=== PATIENT | female | born 1955 | race Asian ===

== ENCOUNTER → 2016-05-12 | Outpatient (CLI) | payer BC ==
--- NOTE | 2016-05-12 09:51 | RADRPT ---
PROCEDURE: XR bilateral knees. CLINICAL INDICATION: Knee pain TECHNIQUE: AP weightbearing, PA weightbearing, lateral weightbearing and sunrise views of each kne e are available for review. COMPARISON: None available FINDINGS: Right knee: There is moderate to severe osteoarthrosis involving the right patellofemoral compartment and modera te osteoarthrosis involving the medial tibial femoral compartment and the lateral tibial femoral com partment .This is associated with joint space narrowing, subchondral sclerosis and osteophytosis. Left knee: There is mild to moderate osteoarthrosis involving the left medial tibial femoral compartment, later al tibial femoral compartment and patellofemoral compartment. This is associated with joint space na rrowing, subchondral sclerosis and osteophytosis. There is otherwise normal mineralization, architecture and alignment. No fractures are identified. No osseous lesions are identified. The soft tissues are unremarkable. IMPRESSION: Moderate to severe osteoarthrosis involving the right patellofemoral compartment and moderate osteoa rthrosis involving the medial tibial femoral compartment and the lateral tibial femoral compartment. Mild to moderate osteoarthrosis involving the left medial tibial femoral compartment, lateral tibial femoral compartment and patellofemoral compartment. RPTAT: HGDB .Julien Tejeda MD, MD Date Time Electronically viewed and signed by .Julien Tejeda MD, on 05/12/2016 09:51 .B/
== END | disposition home or self-care (01) ==
LOC: HKI 10:01
PROVIDERS: ATTEND Orthopaedic Surgery
DX: M17.0 Bilateral primary osteoarthritis of knee (principal); M25.561 Pain in right knee; M25.562 Pain in left knee; I10 Essential (primary) hypertension; Z79.82 Long term (current) use of aspirin
CPT/HCPCS: 73564; G0463

== ENCOUNTER 2016-06-15 10:00 | Inpatient (IN) | payer BC ==
[~2016-06-15] VITALS: Ht 162.6 cm; Wt 77.0 kg
--- NOTE | 2016-06-30 05:39 | PREOPHP ---
DATE OF ADMISSION: 06/15/2016 DATE OF SURGERY: 06/15/2016 Thank you very much for allowing me to evaluate this 60-year-old female who is to undergo right knee surgery. HISTORICAL EVENTS: As you well know, this patient has had progressive disabling pain involving her right knee and elected to proceed with surgical intervention. Today, she denies cough, wheezing, sh ortness of breath, nausea, vomiting, abdominal or chest pain at rest. She denies exertional chest p ain, radiating neck, arm or jaw discomfort. She denies urinary urgency, leaking, dysuria, flank fareed n, fever, chills or blood in her urine. She has longstanding constipation without symptoms of gastr ointestinal bleeding. Has some "mild dyspepsia." This is relieved when she takes either Protonix o r Zantac regularly. PAST MEDICAL HISTORY: 1. Cholecystectomy. 2. Left ankle surgery, right foot bunion surgery, history of plantar fasciitis and heel spurs. 3. History of prediabetes. 4. Acid reflux. 5. Constipation that is longstanding. Gains no help with fiber. Had colonoscopy at age 58 that wa s unrevealing. 6. Labile white coat hypertension. ALLERGIES: NONE. MEDICATIONS: 1. Simvastatin 20 per day. 2. Meloxicam 7.5 (not taking). 3. Ranitidine 150 mg at night. 4. Metformin 500 b.i.d. 5. Vitamin D3 2000 units per day. 6. Losartan 50 mg b.i.d. FAMILY HISTORY: Remarkable for heart disease and diabetes. She has 1 daughter and 2 sons that are healthy. SOCIAL HISTORY: She does not smoke, does not drink alcohol. 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 PHYSICAL EXAMINATION: GENERAL: Overweight female in no acute distress. VITAL SIGNS: BP 168/97, respirations were 18. She was afebrile. EYES: Extraocular muscles were full. NOSE, MOUTH, AND THROAT: Normal. NECK: Supple. There was no jugular venous distention, thyroid enlargement or adenopathy. Carotids 2+, no bruits. LUNGS: Clear. HEART: Rhythm regular. BREASTS: Not examined. ABDOMEN: Nontender. Liver and spleen were not palpable. No masses or tenderness were noted. EXTREMITIES: No edema. Calves nontender. Pulses 2+. IMPRESSION: I forsee no problems with the planned surgical intervention, pending lab review. I have asked her to take her losartan 100 mg at bedtime prior to a.m. surgery. I will follow her postoper atively with you. Dictated By: STEPHANIE SIMS/PABLO Conf#: [id number] DID#: [id number] CC: RAD BARNHART MD;*EndCC*
[2016-07-29] VITALS (14 sets, daily range): BP systolic 113–154; BP diastolic 78–91; PULSE 78–100; RESP 17–19; Ht 162.6 cm; Wt 77.0 kg
[2016-07-29] MEDS ORDERED: EPHEDrine SULFATE 50 MG/5 ML SYG ONE (07:00)
[2016-07-29] MEDS: traMADol 50 MG TAB PO SCH ×2 (12:00→18:00)
[2016-07-29] MEDS ORDERED: EXPAREL NOTE (BUPIVICAINE LIPOSOMAL) XX SCH (12:30)
[2016-07-29] MEDS: LACTATED RINGER'S 1,000 ML IV SCH ×2 (12:53→20:21)
[2016-07-29] MEDS ORDERED: SIMV20TA PO (12:55)
[2016-07-29] MEDS ORDERED: RANI150T5 PO (12:57)
[2016-07-29] MEDS ORDERED: MELO-109 PO (12:57)
[2016-07-29] MEDS ORDERED: PANT20TA3 PO ×2 (13:02→13:03)
[2016-07-29] MEDS ORDERED: LOSA50TA6 PO (13:02)
[2016-07-29] MEDS ORDERED: METF500T4 PO (13:03)
[2016-07-29] MEDS ORDERED: AMLO5TAB4 PO (13:04)
[2016-07-29] MEDS ORDERED: CEFAZOLIN 2GM/50 ML (PMX) 50 ML X1 BEFORE INCISION IVPB ONE (14:00)
[2016-07-29] MEDS ORDERED: traMADOL 50 MG TAB X 1 DOSE PO ONE (14:00)
[2016-07-29] MEDS ORDERED: CELECOXIB 400 MG PO X1 DOSE PO ONE (14:00)
[2016-07-29] MEDS ORDERED: PAIN COCKTAIL-CEFUROXIME IRR ONE ×7 (14:00)
[2016-07-29] MEDS ORDERED: BUPIVACAINE LIPOSOME/PF 266 MG/20 ML VIAL INFIL ONE (14:00)
[2016-07-29] MEDS ORDERED: PREGABALIN 300 MG PO X1 PO ONE (14:00)
[2016-07-29] MEDS ORDERED: TRANEXAMIC ACID 650 MG in SOD CHLORIDE 0.9% 100 ML IVPB ONE (14:00)
[2016-07-29] MEDS ORDERED: oxyCODONE (CR) 10 MG TAB [oxyCONTIN] X1 DOSE PO ONE (14:00)
[2016-07-29] MEDS ORDERED: TRANEXAMIC ACID IV ONE (14:00)
[2016-07-29] MEDS ORDERED: SOD CHLORIDE 0.9% IV ONE (14:00)
[2016-07-29] MEDS ORDERED: LACT1CAP52 PO (14:14)
--- NOTE | 2016-07-29 15:06 | HPN ---
Date/Time of Note Date/Time of Note DATE: 07/29/16 TIME: 15:06 Interval H&P Admission Note Pt. seen H&P reviewed: No system changes No change from H&P on 07/12/16 by RAD Loera MD July 29, 2016 15:06
[2016-07-29] MEDS ORDERED: VANCOMYCIN 1 GM INJ ONE (16:12)
[2016-07-29] MEDS ORDERED: POLYMYXIN B 500000 UNIT INJ ONE (16:12)
[2016-07-29] MEDS ORDERED: PROPOFOL 100 ML ONE (17:18)
[2016-07-29] MEDS ORDERED: LIDOCAINE 2% (SDV) 5 ML INJ ONE (17:18)
[2016-07-29] MEDS ORDERED: FENTAnyl 50 MCG/ML VIAL ONE (17:18)
[2016-07-29] MEDS ORDERED: MIDAZOLAM 1 MG/ML 2 ML INJ ONE (17:18)
[2016-07-29] MEDS ORDERED: BACITRACIN 50000 UNITS INJ ONE (17:29)
[2016-07-29] MEDS ORDERED: CEFAZOLIN 1 GM INJ ONE (17:59)
[2016-07-29] MEDS ORDERED: ONDANSETRON 4 MG INJ ONE (18:14)
[2016-07-29] MEDS ORDERED: METOCLOPRAMIDE 10 MG INJ ONE (18:14)
[2016-07-29] MEDS ORDERED: FAMOTIDINE 20 MG INJ ONE (18:14)
[2016-07-29] MEDS ORDERED: PHENYLephrine (100 MCG/ML) 5ML SYG ONE (19:49)
--- NOTE | 2016-07-29 19:53 | OPR ---
Date/Time of Note Date/Time of Note DATE: 07/29/16 TIME: 19:52 Operative Report Free Text/Dictation Dictation # Procedure Date: July 29, 2016 Preoperative Diagnosis Right Knee OA Postoperative Diagnosis Same Operation Performed Right TKA Surgeon: RAD BARNHART MD music library assistant: EZEKIEL TAPIA PA-C Anesthesia: general, spinal Anesthesiologist: AMNA RASHID MD Tourniquet Time: 67 minutes Estimated Blood Loss: 50 - 100 ml's Specimens Bone and soft tissue Tubes/Drains Hemovac x 1 Complications: None Pt Condition Post Procedure: stable Disposition: PACU RAD BARNHART MD July 29, 2016 19:53
[2016-07-29] MEDS ORDERED: hydrALAzine 20 MG INJ IV PRN (20:00)
[2016-07-29] MEDS ORDERED: MEPERIDINE 25 MG INJ IV PRN (20:00)
[2016-07-29] MEDS ORDERED: FENTAnyl 50 MCG/ML VIAL IV PRN (20:00)
[2016-07-29] MEDS ORDERED: PROCHLORPERAZINE 10 MG INJ IV PRN (20:00)
[2016-07-29] MEDS ORDERED: DIPHENHYDRAMINE 50 MG INJ IV PRN (20:00)
[2016-07-29] MEDS ORDERED: ONDANSETRON 4 MG INJ IV PRN ×2 (20:00→20:30)
[2016-07-29] MEDS ORDERED: HYDROmorphONE (0.2 MG/ML) 10ML SYG IV PRN (20:00)
[2016-07-29] MEDS ORDERED: EPHEDrine SULFATE 50 MG/5 ML SYG IV PRN (20:00)
[2016-07-29] MEDS ORDERED: LABETALOL HCL 20MG INJ IV PRN (20:00)
[2016-07-29] MEDS ORDERED: HYDROCODONE/APAP (5/325) TAB PO PRN (20:30)
[2016-07-29] MEDS ORDERED: NACL 0.9% 3 ML SYG IV SCH (20:30)
[2016-07-29] MEDS ORDERED: MAGNESIUM HYDROXIDE 30ML CUP PO PRN (20:30)
[2016-07-29] MEDS ORDERED: ASPIRIN (EC) 325 MG TAB PO ONE (20:30)
[2016-07-29] MEDS ORDERED: NA PHOSPHATE/BIPHOS 133 ML ENEMA PR PRN (20:30)
[2016-07-29] MEDS ORDERED: BISACODYL 10 MG SUPP PR PRN (20:30)
[2016-07-29] MEDS ORDERED: DIPHENHYDRAMINE 25 MG CAP PO PRN (20:30)
--- NOTE | 2016-07-29 20:36 | PN ---
Date/Time of Note Date/Time of Note DATE: 07/29/16 TIME: 20:34 Assessment/Plan Lines/Catheters IV Catheter Type (from Nrsg): Saline Lock Assessment/Plan Assessment/Plan Stable in PACU, s/p right TKA -continue Ancef -pain meds as needed -ASA/SCDs -OOB with PT -check AM labs -monitor drain -d/c barillas in AM XR of the right knee shows good alignment with no evidence of fracture or dislocation Subjective 24 Hr Interval Summary Stable in PACU. Moving all extremities. Drowsy from anesthesia. Denies any pain. Exam/Review of Systems Vital Signs Vitals Vital Signs Date Time Temp Pulse Resp B/P Pulse Ox O2 Delivery O2 Flow Rate FiO2 07/29/16 20:18 98.6 07/29/16 13:21 95 19 141/88 99 Room Air Exam Free Text/Dictation Hemovac: minimal Dressing dry Incision clean, dry, and intact without redness or drainage Thigh soft 5/5 Quadriceps, Tibialis Anterior, EHL, Gastroc, Soleus, Peroneals Normal sensation Palpable DT/PT, CR <2 sec No distal edema EZEKIEL TAPIA PA-C July 29, 2016 20:36
[2016-07-29 20:56] LABS: HEMATOCRIT 41.3 % (37.0-47.0); HEMOGLOBIN 13.3 g/dl (12.0-16.0)
[2016-07-29] MEDS: CEFAZOLIN 2 GM/50 ML (PMX) 50 ML IVPB SCH (21:13)
[2016-07-29 21:17] LABS: CREATININE 0.78 mg/dl (0.44-1.00); POTASSIUM 4.4 mmol/L (3.5-5.1)
--- NOTE | 2016-07-29 21:34 | RADRPT ---
PROCEDURE: RIGHT knee x-ray CLINICAL INDICATION: Postoperative evaluation TECHNIQUE: AP, oblique and lateral views of the knee were obtained. COMPARISON: 05/12/2016 FINDINGS: There is normal mineralization. No acute fracture or dislocation is seen. The patient is status p ost right knee replacement with appropriate positioning of the prosthesis. There are postsurgical ch anges in the right knee with a small joint effusion. Skin clarita, drainage catheter of subcutaneous gas are consistent with recent surgery. RPTAT:HJJR IMPRESSION: Status post right knee replacement satisfactory in radiographic appearance. Physician Jayjay Date Time Electronically viewed and signed by Physician Jayjay on 07/29/2016 21:34 /
--- NOTE | 2016-07-29 21:36 | OPR ---
DATE OF OPERATION: 07/29/2016 PREOPERATIVE DIAGNOSIS: Right knee osteoarthritis. POSTOPERATIVE DIAGNOSIS: Right knee osteoarthritis. OPERATION PERFORMED: Right total knee arthroplasty. SURGEON: Rad Isaacs MD GAS SHOVEL OPERATOR: NUPUR uBllard COMPONENTS USED: DePuy Attune size 4 femoral component, size 3 tibial baseplate, 6 mm polyethylene insert and a 32 patellar button. ANESTHESIA: Spinal plus general endotracheal intubation plus periarticular injection. ANESTHESIOLOGIST: Dr. Kristen Tillman TOURNIQUET TIME: 67 minutes. ESTIMATED BLOOD LOSS: 50 mL INTRAVENOUS FLUIDS: Two liters of crystalloid. SPECIMENS: Bone and soft tissue. DRAINS: Hemovac x1. COMPLICATIONS: None. DISPOSITION: The patient tolerated the procedure well, was taken to the recovery room in stable con dition. INDICATIONS: The patient is a 61-year-old woman who has had progressive worsening pain in the right knee with radiographic evidence of severe osteoarthritis. She has failed nonsurgical means of ayesha tment to control her pain including activity modifications, pain medications, intra-articular inject ions and ambulatory assist devices. Despite these measures, she has had worsening pain, and I felt she would benefit from a total knee arthroplasty. The risks, benefits, and alternatives of the procedure were explained in detail to the patient. I e xplained the risks of the surgery to include but not be limited to, bleeding and possible need for b lood transfusion; infection; pain; stiffness; neurovascular injury with possible numbness, weakness, and/or paralysis anywhere from the knee down to the toes; fracture; instability; dislocation; wear and/or loosening of the prosthesis and possible need for future revision; blood clots; pulmonary emb olism; and anesthetic complications such as heart attack, stroke, GI bleed, pneumonia, and/or . Ample time was allowed for the patient to ask questions, all of which were addressed and answered. The patient understood the risks involved and wished to proceed. Informed consent was signed prior to the procedure. PROCEDURE: The patient's right knee was initialed with a marking pen in the preoperative area to id entify the correct operative site. The patient was brought to the operating room and transferred fr the [facility] to the operating table where a spinal anesthetic was administered. The patien t was then anesthetized and intubated. A Hernandez catheter was placed. A timeout was performed to con firm that the right leg was the correct operative site. The patient was given 2 g of Ancef within o ne hour prior to the procedure. A tourniquet was placed on the operative proximal thigh. The opera tive knee and lower extremity were prepped and draped in the usual sterile fashion. The operative l ower extremity was elevated and exsanguinated with an Esmarch tourniquet. The proximal thigh tourni quet was inflated to 300 mmHg. The knee was flexed. A midline incision was made and carried down through the subcutaneous tissue a nd fat with sharp dissection. Limited medial and lateral flaps were raised. A median parapatellar arthrotomy approach was performed. Synovial fluid was normal in color and consistency. The patella was everted and the knee flexed. There were severe tricompartmental osteoarthritic changes noted. A medial release was performed at the joint line to the midcoronal plane. The ACL and PCL and remnan ts of the menisci were excised. The stepped drill was used to open up the femoral canal which was i rrigated and sucked dry. The intramedullary guide regulo was passed up the femur, and the distal cutti ng block was pinned into place for a 6-degree valgus cut, taking 10 mm of bone off distally. The osc illating saw was used to make the cut. The tibia was subluxed anteriorly. The tibial cutoff jig was placed over the center of the talus di stally and over the junction of the medial and middle third of the tibial tubercle proximally. The g uide was pinned into place and the oscillating saw was used to make the cut. The tibia was sized. The extension gap was checked and accommodated a 6 mm spacer block with the knee in full extension. There was no varus or valgus instability. At this point, the femur was sized with the posterior referencing guide. Two holes were drilled in 3 degrees of external rotation. The two holes were in line with the transepicondylar axis, perpendi cular to Mario's line, and in line with the tibial cutoff jig brought up with the knee flexed 90 degrees and tensed with 2 lamina spreaders, suggesting the femoral rotation was correct. The four- in-one cutting block was pinned into place. The anterior and posterior cuts and chamfer cuts were m anju with the oscillating saw. The flexion gap was checked and accommodated a 6 mm spacer block at 9 0 degrees. There was no varus or valgus instability, suggesting the flexion and extension gaps were now equal. The central box was cut out on the femur. The tibia was drilled and punched in proper rotation. Tri al components were placed into position with a trial insert. The patella was cut from 21 mm down to 13 mm and sized. Three holes were drilled and the trial button placed in position. With all the t rials now in place, the knee was taken through range of motion and came to full extension as evidenc ed by the fact that with the foot on my abdomen and axial loading, there was no tendency for the kne e to flex. The knee was able to be flexed to 125 degrees with good patellar tracking with no latera l tilt or subluxation. At this point, I was satisfied with the overall range of motion, stability, and patellar tracking. The trials were removed. The real components were opened. Two bags of cement were mixed, one with and one without premixed antibiotic. The knee was irrigated with antibiotic saline and sucked dry. Once the cement was in a doughy stage, the real components were cemented into place. The knee was held in full extension, and the patellar component was held with a patellar clamp. All excess cemen t was removed with curettes. As the cement was hardening, the synovial/capsular layer was infiltrat ed with a mixture of 150 mg of 0.5% Bupivacaine, 8 mg of Duramorph, 300 mcg of epinephrine, 30 mg of Toradol, 100 mcg of clonidine, 750 mg of cefuroxime and 86 mL of normal saline, followed by an inje ction of 266 mg of liposomal Bupivacaine. A Hemovac drain was placed in the deep portion of the wound and brought out the anterolateral thigh. Once the cement was completely hardened, the trial liner was removed, and the real insert was open ed. The tourniquet was let down, and there was good hemostasis. The knee was then irrigated with a mixture of betadine/saline and then antibiotic saline with pulsatile lavage. The real insert was impacted into the tibia and reduced onto to the femur. The arthrotomy was closed with a few interrupted #1 Ethibond in a abapeh-nt-qrcug fashion, and then closed in a watertight fashion with a running #2 Stratafix suture. Knee flexion was checked against gravity and came to 125 degrees. The subcutaneous layer was irrigated and closed with 2-0 Statafix , and then 3-0 Vicryl and then clarita on the skin. The wound was covered with an occlusive dressin g, and secured with cast padding and a bias dressing. The drain was secured with 3-0 nylon. The sponge and needle counts were correct at the end of the case. The patient was then awakened, ex tubated, and taken to the recovery room in stable condition. Dictated By: RAD LIZ/NTS Conf#: [id number] DID#: [id number]
[2016-07-29] MEDS: HYDROmorphONE 1 MG/ML SYG IV PRN (22:48)
[2016-07-29] MEDS: DOCUSATE SODIUM 100 MG CAP PO SCH (22:51)
[2016-07-29] MEDS: PREGABALIN 50 MG CAP PO SCH (22:51)
[2016-07-29] MEDS: RANITIDINE 150 MG TAB PO SCH (22:52)
[2016-07-29] MEDS: LOSARTAN 50 MG TAB PO SCH (22:52)
[2016-07-29] MEDS: ATORVASTATIN 10 MG TAB PO SCH (23:00)
[2016-07-29] MEDS ORDERED: TRANEXAMIC ACID 770 MG in SOD CHLORIDE 0.9% 100 ML IVPB ONE (23:30)
[2016-07-30 00:04] VITALS: BP 137/89; PULSE 89; RESP 18
[2016-07-30] MEDS: LACTATED RINGER'S 1,000 ML IV SCH ×7 (02:03→20:21)
[2016-07-30] MEDS ORDERED: TRANEXAMIC ACID 770 MG in SOD CHLORIDE 0.9% 100 ML IVPB ONE (02:30)
[2016-07-30] MEDS: CEFAZOLIN 2 GM/50 ML (PMX) 50 ML IVPB SCH ×2 (04:00→12:55)
[2016-07-30 05:36] LABS: HEMATOCRIT 34.4 % (37.0-47.0); HEMOGLOBIN 11.2 g/dl (12.0-16.0)
[2016-07-30] MEDS ORDERED: PANTOPRAZOLE (EC) 40 MG TAB PO SCH (06:00)
[2016-07-30] MEDS: traMADol 50 MG TAB PO SCH ×5 (06:00→23:33)
[2016-07-30 06:02] LABS: CREATININE 0.66 mg/dl (0.44-1.00)
[2016-07-30 06:03] LABS: CALCIUM 8.6 mg/dl (8.4-10.2)
[2016-07-30 06:38] VITALS: BP 127/67; PULSE 62; RESP 18
[2016-07-30 07:53] VITALS: BP 118/71; RESP 18
[2016-07-30 08:12] LABS: ADD UMIC YES; URINE BILIRUBIN (Dip) NEGATIVE (NEGATIVE); URINE BLOOD (Dip) 3+ (NEGATIVE); URINE COLOR LT. YELLOW (YELLOW); URINE GLUCOSE (Dip) NEGATIVE (NEGATIVE); URINE KETONES (Dip) NEGATIVE (NEGATIVE); URINE LEUKOCYTE ESTERASE (Dip) 1+ (NEGATIVE); URINE NITRITE (Dip) NEGATIVE (NEGATIVE); URINE TOTAL PROTEIN (Dip) TRACE (NEGATIVE); URINE UROBILINOGEN (Dip) 0.2 E.U./dL (0.1-1.0)
[2016-07-30 08:25] LABS: BACTERIA,URINE FEW; MUCUS,URINE FEW; URINE RBCS 25-50 /HPF (0)
[2016-07-30] MEDS: PREGABALIN 50 MG CAP PO SCH ×2 (08:47→20:37)
[2016-07-30] MEDS: ASPIRIN (EC) 325 MG TAB PO SCH ×2 (08:47→20:37)
[2016-07-30] MEDS: DOCUSATE SODIUM 100 MG CAP PO SCH ×2 (08:47→20:37)
[2016-07-30] MEDS: AMLODIPINE 5 MG TAB PO SCH (08:51)
[2016-07-30] MEDS: LOSARTAN 50 MG TAB PO SCH ×2 (08:52→20:38)
--- NOTE | 2016-07-30 08:54 | CONS ---
DATE OF ADMISSION: 07/29/2016 DATE OF CONSULTATION: 07/30/2016 TYPE OF CONSULTATION: Postop nephrology consultation Thank you very much, Dr. Isaacs, for allowing me to evaluate Roxanna Kramer, a 61-year-old female who just underwent right knee replacement. HISTORICAL EVENTS: As you well know, this patient has had progressive disabling pain involving her right knee and elected to proceed with surgery. Postoperatively, she is comfortable without cough, wheezing, shortness of breath, nausea, vomiting, abdominal or chest pain. She has mild right knee p ain. PAST MEDICAL HISTORY: Includes: 1. Cholecystectomy. 2. Left ankle surgery. 3. Right foot bunion surgery. 4. History of plantar fasciitis and heel spurs. 5. History of prediabetes. 6. GERD. 7. History of constipation longstanding. 8. Labile white-coat hypertension. 9. Undergoing cardiology evaluation preop as her EKG was abnormal, echocardiogram was unrevealing a nd it was felt that she could proceed. FAMILY HISTORY: Positive for diabetes. SOCIAL HISTORY: Nonsmoker and does not drink. MEDICATIONS: Include: 1. Simvastatin 20 mg per day. 2. Meloxicam 7.5 mg per day. 3. Ranitidine 150 mg at bedtime. 4. Metformin 500 mg b.i.d. 5. Vitamin D3 2000 units per day. 6. Losartan 50 mg per day. 7. Protonix 20 mg per day. ALLERGIES: NONE. PHYSICAL EXAMINATION: GENERAL: [place] female in no acute distress. VITAL SIGNS: BP 138/80, pulse 70, respirations are 20, she was afebrile. EYES: Extraocular muscles were full. NOSE, MOUTH, AND THROAT: Normal. NECK: Supple. There was no jugular venous distention, thyroid enlargement or adenopathy. Carotids 2+. LUNGS: Clear. HEART: Rhythm regular. ABDOMEN: Nontender. Liver and spleen were not palpable. No masses or tenderness were noted. EXTREMITIES: No edema. Calves nontender. NEUROLOGIC: No lateralizing motor weakness. IMPRESSION: 1. Stable postop right knee replacement. 2. History of hypertension. Will continue ARB and monitor BP throughout. 3. Gastroesophageal reflux disease. Will need PPI b.i.d. during her hospitalization. 5. Will evaluate her daily for signs and symptoms of thromboembolic disease despite appropriate prabhjot p vein thrombosis prophylaxis. 6. History of prediabetes having been on metformin and will continue the same. Dictated By: STEPHANIE SIMS/PABLO Conf#: [id number] DID#: [id number]
[2016-07-30 08:56] VITALS: BP 123/77; PULSE 61; RESP 20
--- NOTE | 2016-07-30 09:50 | PN ---
Date/Time of Note Date/Time of Note DATE: 07/30/16 TIME: 09:49 Assessment/Plan Lines/Catheters IV Catheter Type (from Nrsg): Peripheral IV Assessment/Plan Assessment/Plan Stable POD #1, s/p right TKA -d/c Ancef -pain meds as needed -ASA/SCDs for DVT prophylaxis -OOB with PT -drain removed -check AM labs -discharge planning. Will plan to go home upon discharge Subjective 24 Hr Interval Summary No acute overnight events. Denies significant pain. Did not start PT yesterday. VSS, afebrile. Will plan to go home upon discharge. Exam/Review of Systems Vital Signs Vitals Vital Signs Date Time Temp Pulse Resp B/P Pulse Ox O2 Delivery O2 Flow Rate FiO2 07/30/16 08:56 61 20 123/77 07/30/16 07:53 97.9 100 07/30/16 06:38 Nasal Cannula 2.0 Intake and Output 07/29/16 07/29/16 07/30/16 15:00 23:00 07:00 Intake Total 2600 ml 2065.4 ml Output Total 420 ml 980 ml Balance 2180 ml 1085.4 ml Exam Free Text/Dictation Hemovac: 150cc Dressing dry Incision clean, dry, and intact without redness or drainage Thigh soft 5/5 Quadriceps, Tibialis Anterior, EHL, Gastroc, Soleus, Peroneals Normal sensation Palpable DT/PT, CR <2 sec No distal edema Results Result Diagram: 07/30/16 0442 07/30/16 044 EZEKIEL TAPIA PA-C July 30, 2016 09:50
[2016-07-30] MEDS: HYDROmorphONE 1 MG/ML SYG IV PRN (10:03)
--- NOTE | 2016-07-30 10:28 | PDOCDIS ---
Discharge Instructions DIAGNOSIS Discharge Diagnosis: s/p right TKA CONDITION Patient Condition: Good HOME CARE INSTRUCTIONS: Diet Instructions: Regular ACTIVITY: Activity Restrictions: Slowly Increase Activity Rest between Activity Avoid heavy lifting Do not operate Machinery Do not operate Power Tool Avoid Heavy Housework Keep Limb Elevated Bathing Restrictions: Shower FOLLOW UP/APPOINTMENTS Appointments follow up in the office on 08/09/16 OTHER ORDERS: Other Orders: S/P TKA Physical Therapy: Three times per week at home x 2 weeks Daily in Rehab/SNF WB STATUS: WBAT 1. Strengthening exercises for both upper and un-operated lower extremities. 2. Gait training with front wheeled walker 3. Active range of motion exercises to operative knee. 4. When not working on knee range of motion exercises, distal towel roll under operative ankle/distal calf to promote full extension. 5. DO NOT PUT ANYTHING BEHIND OPERATIVE KNEE!!! 6. Quadriceps and hamstring strengthening. 7. May switch to cane in contra lateral hand 6 weeks after surgery. 8. Physical Therapy can open case if nursing is not available. 9. Use Ice Machine as instructed from date of surgery while at rest 3X/day. 10. Patient requires mobile SCDs to reduce risk of developing DVT following TKA. Patient will use the mobile SCDs for 30 days postoperatively. Bathing assistance by home health aide twice weekly if Medicare patient. Occupational Therapy: Evaluation for assistive devices and ADL training. Wound Care: Keep incision dry & covered with Tegaderm until first visit with Dr. Isaacs Anticoagulation Orders: Enteric Coated Aspirin 325 mg po bid x 6 weeks from date of surgery Follow-up:Call for an appointment with Dr. Isaacs in 1 week after discharged from hospital at DME Orders: FRANK, 3-in-1 Commode, Polar ice machine, Mobile SCDs EZEKIEL TAPIA PA-C July 30, 2016 10:28
[2016-07-30] MEDS ORDERED: HYDR-905 PO (10:29)
[2016-07-30] MEDS ORDERED: TRAM50TA2 PO (10:29)
[2016-07-30] MEDS ORDERED: ASPI325T32 PO (10:29)
[2016-07-30] MEDS ORDERED: PANT40TA4 PO (10:29)
[2016-07-30] MEDS ORDERED: PREG50CA PO (10:29)
[2016-07-30] MEDS: metFORMIN 500 MG TAB PO SCH (17:42)
[2016-07-30 19:00] VITALS: BP 158/82; RESP 16
[2016-07-30] MEDS: HYDROCODONE/APAP (5/325) TAB PO PRN (19:36)
[2016-07-30] MEDS: RANITIDINE 150 MG TAB PO SCH (20:37)
[2016-07-30] MEDS: ATORVASTATIN 10 MG TAB PO SCH (20:37)
[2016-07-31] MEDS: LACTATED RINGER'S 1,000 ML IV SCH ×5 (04:21→20:21)
[2016-07-31 05:30] LABS: HEMATOCRIT 34.4 % (37.0-47.0); HEMOGLOBIN 11.3 g/dl (12.0-16.0)
[2016-07-31 05:56] LABS: MAGNESIUM 1.8 mg/dl (1.7-2.5); PHOSPHORUS 3.1 mg/dl (2.5-4.9)
[2016-07-31] MEDS: traMADol 50 MG TAB PO SCH ×4 (05:58→23:49)
[2016-07-31] MEDS: PANTOPRAZOLE (EC) 40 MG TAB PO SCH (05:58)
[2016-07-31 06:02] LABS: CREATININE 0.63 mg/dl (0.44-1.00); POTASSIUM 3.7 mmol/L (3.5-5.1)
[2016-07-31 07:00] VITALS: BP 141/85; RESP 18
[2016-07-31] MEDS: ASPIRIN (EC) 325 MG TAB PO SCH ×2 (08:53→20:39)
[2016-07-31] MEDS: DOCUSATE SODIUM 100 MG CAP PO SCH ×2 (08:54→20:39)
[2016-07-31] MEDS: AMLODIPINE 5 MG TAB PO SCH (08:54)
[2016-07-31] MEDS: PREGABALIN 50 MG CAP PO SCH ×2 (08:54→20:39)
[2016-07-31] MEDS: HYDROCODONE/APAP (5/325) TAB PO PRN ×3 (08:54→22:05)
[2016-07-31] MEDS: metFORMIN 500 MG TAB PO SCH ×2 (08:54→17:22)
[2016-07-31] MEDS: LOSARTAN 50 MG TAB PO SCH ×2 (08:55→20:40)
--- NOTE | 2016-07-31 11:29 | PN ---
Date/Time of Note Date/Time of Note DATE: 07/31/16 TIME: 11:25 Assessment/Plan Lines/Catheters IV Catheter Type (from Nrsg): Saline Lock Assessment/Plan Assessment/Plan Stable POD #2, s/p right TKA -pain meds as needed -ASA/SCDs -OOB with PT -check AM labs -dressing changed -tentative discharge home tomorrow Subjective 24 Hr Interval Summary No acute overnight events. Having mild pain. Progressing with PT. VSS, afebrile. Will plan to tentative discharge home tomorrow. Exam/Review of Systems Vital Signs Vitals Vital Signs Date Time Temp Pulse Resp B/P Pulse Ox O2 Delivery O2 Flow Rate FiO2 07/31/16 07:00 98.2 70 18 141/85 96 07/30/16 06:38 Nasal Cannula 2.0 Intake and Output 07/30/16 07/30/16 07/31/16 15:00 23:00 07:00 Intake Total 1050 ml 900 ml 400 ml Balance 1050 ml 900 ml 400 ml Exam Free Text/Dictation Dressing dry Incision clean, dry, and intact without redness or drainage Thigh soft 07/09 Quadriceps, Tibialis Anterior, EHL, Gastroc, Soleus, Peroneals Normal sensation Palpable DT/PT, CR <2 sec No distal edema Results Result Diagram: 07/31/16 0510 07/31/16 0510 EZEKIEL TAPIA PA-C July 31, 2016 11:29
--- NOTE | 2016-07-31 17:25 | CONS ---
Date/Time of Note Date/Time of Note DATE: 07/31/16 TIME: 17:24 Assessment/Plan Assessment/Plan Additional Assessment/Plan 1. Stable postop right knee replacement. 2. History of hypertension. Will continue ARB and monitor BP throughout. 3. Gastroesophageal reflux disease. Will need PPI b.i.d. during her hospitalization 5. Will evaluate her daily for signs and symptoms of thromboembolic disease despite appropriate deep vein thrombosis prophylaxis. 6. History of prediabetes having been on metformin and will continue the same. d/c planning for home, no active issues, progressing well. Consultation Date/Type/Reason Admit Date/Time July 29, 2016 at 12:13 Initial Consult Date 24 HR Interval Summary Constitutional: improved (family member at bed side, out from bed, using rest room, pain controlled), no complaints Exam/Review of Systems Vital Signs Vitals Vital Signs Date Time Temp Pulse Resp B/P Pulse Ox O2 Delivery O2 Flow Rate FiO2 07/31/16 07:00 98.2 70 18 141/85 96 07/30/16 06:38 Nasal Cannula 2.0 Intake and Output 07/30/16 07/30/16 07/31/16 15:00 23:00 07:00 Intake Total 1050 ml 900 ml 400 ml Balance 1050 ml 900 ml 400 ml Exam Constitutional: alert, oriented Psych: no complaints Eyes: EOMI, nl conjunctiva ENMT: nl external ears & nose Neck: supple Cardiovascular: regular rate and rhythm Gastrointestinal: soft Neurological: 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 intact Results Result Diagram: 07/31/16 0510 07/31/16 0510 Results 24 hrs Laboratory Tests Test 07/31/16 05:10 Hemoglobin 11.3 L Hematocrit 34.4 L Sodium Level 136 Potassium Level 3.7 Chloride Level 103 Carbon Dioxide Level 30 Anion Gap 7 #L Blood Urea Nitrogen 11 Creatinine 0.63 Glucose Level 151 Calcium Level 9.0 Phosphorus Level 3.1 Magnesium Level 1.8 Medications Medications Current Medications Lactated Ringer's (Lr) 1,000 ml @ 100 mls/hr Q10H IV Last administered on 07/29t 12:53; Admin Dose 100 MLS/HR; Start 07/29/16 at 14:00 Miscellaneous Information 1 ea NOTE XX ; Start 07/29/16 at 12:30; Stop 08/02/16 at 12:29 Amlodipine Besylate (Norvasc) 5 mg DAILY PO Last administered on 07/31/16 08: 54; Admin Dose 5 MG; Start 07/30/16 at 09:00 Losartan Potassium (Cozaar) 50 mg BID PO Last administered on 07/31/16 08:55; Admin Dose 50 MG; Start 07/29/16 at 21:00 Ranitidine HCl (Zantac) 150 mg HS PO Last administered on 07/30/16 20:37; Admin Dose 150 MG; Start 07/29/16 at 21:00 Atorvastatin Calcium 10 mg 10 mg DAILY@21 PO Last administered on 07/30/16 20: 37; Admin Dose 10 MG; Start 07/29/16 at 21:15 Lactated Ringer's (Lr) 1,000 ml @ 125 mls/hr Q8H IV Last administered on 12:56; Admin Dose 125 MLS/HR; Start 07/29/16 at 20:21 Tramadol HCl (Ultram) 50 mg Q6 PO Last administered on 07/31/16 13:30; Admin Dose 50 MG; Start 07/29/16 at 12:00; Stop 08/01/16 at 11:59 Acetaminophen/ Hydrocodone Bitart ([place] (5/325)) 1 tab Q4H PRN PO PAIN LEVEL 1 -3; Start 07/29/16 at 20:30 Acetaminophen/ Hydrocodone Bitart ([place] (5/325)) 2 tab Q4H PRN PO PAIN LEVEL 4 -7 Last administered on 07/31/16 17:21; Admin Dose 2 TAB; Start 07/29/16 at 20: 30 Hydromorphone HCl (Dilaudid) 1 mg Q3H PRN IV PAIN LEVEL 8-10 Last administered on 07/30/16 10:03; Admin Dose 1 MG; Start 07/29/16 at 20:30 Ondansetron HCl (Zofran Inj) 4 mg Q6H PRN IV NAUSEA AND/OR VOMITING Last administered on 07/30/16 10:00; Admin Dose 4 MG; Start 07/29/16 at 20:30 Bisacodyl (Dulcolax Supp) 10 mg Q12H PRN [place] CONSTIPATION; Start 07/29/16 at 20: 30 Magnesium Hydroxide (Milk Of Mag) 30 ml BID PRN PO CONSTIPATION; Start at 20:30 Sodium Biphosphate/ Sodium Phosphate (Fleet Enema) 133 ml DAILY PRN [place] CONSTIPATION; Start 07/29/16 at 20:30 Docusate Sodium (Colace) 100 mg BID PO Last administered on 07/31/16 08:54; Admin Dose 100 MG; Start 07/29/16 at 21:00 Diphenhydramine HCl (Benadryl) 25 mg Q6H PRN PO PRURITUS; Start 07/29/16 at 20: 30 Aspirin (Ecotrin) 325 mg BID PO Last administered on 07/31/16 08:53; Admin Dose 325 MG; Start 07/30/16 at 09:00 Pregabalin (Lyrica) 50 mg BID PO Last administered on 07/31/16 08:54; Admin Dose 50 MG; Start 07/29/16 at 21:00 Pantoprazole (Protonix Tab) 40 mg DAILY@06 PO Last administered on 07/31/16 05 :58; Admin Dose 40 MG; Start 07/31/16 at 06:00 RENNY FELDER MD July 31, 2016 17:25
[2016-07-31 19:00] VITALS: BP 163/86; RESP 18
[2016-07-31 20:40] VITALS: BP 181/90; RESP 17
[2016-07-31] MEDS: RANITIDINE 150 MG TAB PO SCH (20:40)
[2016-07-31] MEDS: ATORVASTATIN 10 MG TAB PO SCH (20:40)
[2016-08-01] MEDS: LACTATED RINGER'S 1,000 ML IV SCH ×4 (02:00→12:21)
[2016-08-01 05:52] LABS: HEMATOCRIT 33.6 % (37.0-47.0)
[2016-08-01 06:08] LABS: POTASSIUM 3.7 mmol/L (3.5-5.1)
[2016-08-01 06:10] LABS: CREATININE 0.62 mg/dl (0.44-1.00)
[2016-08-01 06:11] LABS: CALCIUM 8.9 mg/dl (8.4-10.2)
[2016-08-01] MEDS: PANTOPRAZOLE (EC) 40 MG TAB PO SCH (06:14)
[2016-08-01] MEDS: traMADol 50 MG TAB PO SCH (06:15)
[2016-08-01 07:55] VITALS: BP 162/95; RESP 18
[2016-08-01] MEDS: DOCUSATE SODIUM 100 MG CAP PO SCH (08:38)
--- NOTE | 2016-08-01 08:38 | PN ---
Date/Time of Note Date/Time of Note DATE: 08/01/16 TIME: 08:37 Assessment/Plan Lines/Catheters IV Catheter Type (from Nrsg): Saline Lock Assessment/Plan Assessment/Plan POD #3, s/p right TKA -pain meds as needed -ASA/SCDs -OOB with PT -dressing changed -discharge home today -follow up in the office in 1 week Subjective 24 Hr Interval Summary No acute overnight events. Having mild pain but controlled with pain medicine. VSS, afebrile. Will plan to go home today. Exam/Review of Systems Vital Signs Vitals Vital Signs Date Time Temp Pulse Resp B/P Pulse Ox O2 Delivery O2 Flow Rate FiO2 08/01/16 07:55 98.0 82 18 162/95 98 07/30/16 06:38 Nasal Cannula 2.0 Intake and Output 07/31/16 07/31/16 08/01/16 15:00 23:00 07:00 Intake Total 1100 ml Balance 1100 ml Exam Free Text/Dictation Dressing dry Incision clean, dry, and intact without redness or drainage Thigh soft / Quadriceps, Tibialis Anterior, EHL, Gastroc, Soleus, Peroneals Normal sensation Palpable DT/PT, CR <2 sec No distal edema Results Result Diagram: 08/01/16 04408/01/16 044 EZEKIEL TAPIA PA-C August 01, 2016 08:38
[2016-08-01] MEDS: PREGABALIN 50 MG CAP PO SCH (08:39)
[2016-08-01] MEDS: metFORMIN 500 MG TAB PO SCH (08:39)
[2016-08-01] MEDS: LOSARTAN 50 MG TAB PO SCH (08:39)
[2016-08-01] MEDS: ASPIRIN (EC) 325 MG TAB PO SCH (08:39)
[2016-08-01] MEDS: HYDROCODONE/APAP (5/325) TAB PO PRN ×2 (08:45→13:07)
[2016-08-01] MEDS: AMLODIPINE 5 MG TAB PO SCH (08:45)
--- NOTE | 2016-08-01 13:58 | CONS ---
Date/Time of Note Date/Time of Note DATE: 08/01/16 TIME: 13:57 Assessment/Plan Assessment/Plan Additional Assessment/Plan 1. Stable postop right knee replacement. pain medication for discharge per ortho 2. ESBL UA, <10K colonies, colonized, no antibiotics, no sx of dysuria 2. History of hypertension. Will continue ARB and monitor BP throughout. 3. Gastroesophageal reflux disease. Will need PPI b.i.d. during her hospitalization 5. Will evaluate her daily for signs and symptoms of thromboembolic disease despite appropriate deep vein thrombosis prophylaxis. 6. History of prediabetes having been on metformin and will continue the same. d/c planning for home, no active issues, progressing well. 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 II-XII intact Results Result Diagram: 08/01/16 0441 08/01/16440 Results 24 hrs Laboratory Tests Test 08/01/16 04:41 Hemoglobin 11.0 L Hematocrit 33.6 L Sodium Level 140 Potassium Level 3.7 Chloride Level 104 Carbon Dioxide Level 33 H Anion Gap 7 L Blood Urea Nitrogen 9 Creatinine 0.62 Glucose Level 123 Calcium Level 8.9 Medications Medications Current Medications Lactated Ringer's (Lr) 1,000 ml @ 100 mls/hr Q10H IV Last administered on 07/29 12:53; Admin Dose 100 MLS/HR; Start 07/29/16 at 14:00 Miscellaneous Information 1 ea NOTE XX ; Start 07/29/16 at 12:30; Stop 08/02/16 at 12:29 Amlodipine Besylate (Norvasc) 5 mg DAILY PO Last administered on 08/01/16 08: 45; Admin Dose 5 MG; Start 07/30/16 at 09:00 Losartan Potassium (Cozaar) 50 mg BID PO Last administered on 08/01/16 08:39; Admin Dose 50 MG; Start 07/29/16 at 21:00 Ranitidine HCl (Zantac) 150 mg HS PO Last administered on 07/31/16 20:40; Admin Dose 150 MG; Start 07/29/16 at 21:00 Atorvastatin Calcium 10 mg 10 mg DAILY@21 PO Last administered on 07/31/16 20: 40; Admin Dose 10 MG; Start 07/29/16 at 21:15 Lactated Ringer's (Lr) 1,000 ml @ 125 mls/hr Q8H IV Last administered on 12:56; Admin Dose 125 MLS/HR; Start 07/29/16 at 20:21 Acetaminophen/ Hydrocodone Bitart ([place] (5/325)) 1 tab Q4H PRN PO PAIN LEVEL 1 -3; Start 07/29/16 at 20:30 Acetaminophen/ Hydrocodone Bitart ([place] (5/325)) 2 tab Q4H PRN PO PAIN LEVEL 4 -7 Last administered on 08/01/16 13:07; Admin Dose 2 TAB; Start 07/29/16 at 20: 30 Hydromorphone HCl (Dilaudid) 1 mg Q3H PRN IV PAIN LEVEL 8-10 Last administered on 07/30/16 10:03; Admin Dose 1 MG; Start 07/29/16 at 20:30 Ondansetron HCl (Zofran Inj) 4 mg Q6H PRN IV NAUSEA AND/OR VOMITING Last administered on 07/30/16 10:00; Admin Dose 4 MG; Start 07/29/16 at 20:30 Bisacodyl (Dulcolax Supp) 10 mg Q12H PRN [place] CONSTIPATION; Start 07/29/16 at 20: 30 Magnesium Hydroxide (Milk Of Mag) 30 ml BID PRN PO CONSTIPATION; Start at 20:30 Sodium Biphosphate/ Sodium Phosphate (Fleet Enema) 133 ml DAILY PRN [place] CONSTIPATION; Start 07/29/16 at 20:30 Docusate Sodium (Colace) 100 mg BID PO Last administered on 08/01/16 08:38; Admin Dose 100 MG; Start 07/29/16 at 21:00 Diphenhydramine HCl (Benadryl) 25 mg Q6H PRN PO PRURITUS; Start 07/29/16 at 20: 30 Aspirin (Ecotrin) 325 mg BID PO Last administered on 08/01/16 08:39; Admin Dose 325 MG; Start 07/30/16 at 09:00 Pregabalin (Lyrica) 50 mg BID PO Last administered on 08/01/16 08:39; Admin Dose 50 MG; Start 07/29/16 at 21:00 Pantoprazole (Protonix Tab) 40 mg DAILY@06 PO Last administered on 08/01/16 06 :14; Admin Dose 40 MG; Start 07/31/16 at 06:00 RENNY FELDER MD August 01, 2016 13:58
--- NOTE | 2016-08-01 18:57 | DS ---
DATE OF ADMISSION: 07/29/2016 DATE OF DISCHARGE: 08/01/2016 CONDITION ON DISCHARGE: Stable. ADMITTING DIAGNOSIS: Right knee osteoarthritis. DISCHARGE DIAGNOSIS: Status post right total knee arthroplasty. PROCEDURE PERFORMED: Right total knee arthroplasty. HOSPITAL COURSE: This is a 61-year-old female seen in the clinic initially complaining of right knee pain. X-rays were done demonstrating advanced osteoarthritis of the right knee and it was thought she would benefit from total knee arthroplasty. On 07/29/2016 the patient was admitted and taken to the operating room where she underwent a right total knee arthroplasty. There were no intraoperative complications. The patient tolerated the procedure well. She was taken to the recovery room in stable condition. She was started on aspirin and SCDs for DVT prophylaxis. She remained hemodynamically stable, neurovascularly intact throughout her hospital stay. She began physical therapy on postoperative day 1 and continued to make good progress. Ultimately, she was deemed stable for discharge on postoperative day #3. Prior to discharge, the incision was inspected and noted to be clean, dry and intact. Dressing changes were applied. The patient went home. LABORATORY ANALYSIS: Hemoglobin 11.0, hematocrit 33.6. Chemistry panel was within normal limits. DISCHARGE MEDICATIONS: 1. [place] 7.5/325mg 2. Tramadol 50mg 3. Aspirin 325mg 4. Protonix 40mg 5. Lyrica 50mg Additionally, the patient is to resume all her normal home medications. DISCHARGE INSTRUCTIONS: The patient will be discharged home in stable condition. She is to resume a normal diet. She is weight bearing as tolerated on right lower extremity. She will begin physical therapy with home health. She will be discharged home on medications noted above and is to resume all normal home medication. Patient is to call the office or go to the emergency room for any concerns including increased redness, swelling, drainage, fever, or any concerns regarding the operation or site of incision. FOLLOWUP: The patient is to follow up in the office on 08/09/2016. Dictated By: EZEKIEL ESPITIA for RAD HENRY/PABLO Conf#: [id number] DID#: [id number] MTDD
== END 2016-08-01 16:00 | disposition home health service (06) | DRG 470 ==
LOC: EDSTATUS 10:00 → REC 07-29 12:13 → MS1 07-29 22:30
PROVIDERS: ADMIT Orthopaedic Surgery; ATTEND Orthopaedic Surgery
PROC: 0SRC0J9 Replacement of Right Knee Joint with Synthetic Substitute, Cemented, Open Approach (ICD-10-PCS; principal; 2016-07-29 16:00)
DX: M17.11 Unilateral primary osteoarthritis, right knee (principal); I10 Essential (primary) hypertension; K21.9 Gastro-esophageal reflux disease without esophagitis; E11.9 Type 2 diabetes mellitus without complications; Z79.82 Long term (current) use of aspirin; E78.00 Pure hypercholesterolemia, unspecified
CPT/HCPCS: 73560; 80048; 81001; 82962; 83735; 84100; 85014; 85018; 86850; 86900; 86901; 86920; 87081; 87086; 97110; 97116; 97163; 97166; 97530; C1776; C9290; J0171; J0690; J0697; J0735; J1170; J1885; J2250; J2274; J2370; J2405; J2765; J3010; J3370; J7120

== ENCOUNTER → 2016-07-23 | Outpatient (CLI) | payer BC ==
--- NOTE | 2016-07-23 10:14 | RADRPT ---
PROCEDURE: Limited x-ray of both lower extremities. CLINICAL INDICATION: Bilateral leg pain. TECHNIQUE: Single frontal view of both lower extremities was obtained from the hips to the calves. COMPARISON: Bilateral knee radiographs dated 05/12/2016. FINDINGS: There are mild degenerative changes of both hips with osteophytes noted. Moderate to severe degenerative changes of the right knee and moderate degenerative changes of the l eft knee are once again noted. IMPRESSION: 1. Mild degenerative changes of the hips. 2. Moderate to severe degenerative changes of the right knee. 3. Moderate degenerative changes of the left knee. RPTAT: QQ .Sabas Cox MD, MD Date Time Electronically viewed and signed by .Sabas Cox MD, MD on 07/23/2016 10:13 .R/
== END | disposition home or self-care (01) ==
LOC: HKI 08:59
PROVIDERS: ATTEND Orthopaedic Surgery
DX: Z01.818 Encounter for other preprocedural examination (principal); M17.11 Unilateral primary osteoarthritis, right knee; I10 Essential (primary) hypertension; E78.00 Pure hypercholesterolemia, unspecified; K21.9 Gastro-esophageal reflux disease without esophagitis
CPT/HCPCS: 77073; G0463

== ENCOUNTER → 2016-08-09 | Outpatient (CLI) | payer BC ==
[~2016-08-09] MED LIST: AMLO5TAB4 PO; ASPI325T32 PO; HYDR-905 PO; LACT1CAP52 PO; LOSA50TA6 PO; METF500T4 PO; PANT40TA4 PO; PREG50CA PO; RANI150T5 PO; SIMV20TA PO; TRAM50TA2 PO
--- NOTE | 2016-08-09 10:35 | RADRPT ---
PROCEDURE: RIGHT knee x-ray CLINICAL INDICATION: PAIN TECHNIQUE: AP and lateral views of the right knee were obtained. COMPARISON: None FINDINGS: There is normal mineralization. No acute fracture or dislocation is seen. The patient is status post right knee replacement with appropriate positioning of the prostheses. There are postsurgical c hanges in the right knee with a small patellofemoral joint effusion as well as overlying skin staple s. IMPRESSION: Status post right knee replacement, as above. RPTAT: EE Physician Burt Date Time Electronically viewed and signed by Zfeerino Sethi Physician on 08/09/2016 10:35 /
--- NOTE | 2016-08-09 18:32 | HKNOTE ---
DATE OF SERVICE: 08/09/2016 INTERVAL HISTORY: The patient presents today for her first postoperative visit. She is 10 days status post right total knee arthroplasty. She is doing well overall. She has been having mild pain. However, her pain is well controlled with [place]. She denies any fevers or chills. She is taking aspirin twice a day for DVT prophylaxis. She is also doing physical therapy with home health. She presents today for her first postoperative evaluation. PHYSICAL EXAMINATION: Today, she is alert and oriented x4 and in no acute distress. She is ambulating with a front-wheel walker. The incision appears to be clean, dry and intact. Tornado are in place. There is no effusion, erythema , pus or drainage noted. Range of motion is 0 to 100 degrees. Varus and valgus forces are stable. Homans sign is negative. Compartments are soft. She is neurovascularly intact distally. IMAGING: X-rays of the right knee were obtained today and reviewed by me. They demonstrate good anatomic alignment with no fractures or dislocations identified. ASSESSMENT: Ten days status post right total knee arthroplasty. PLAN: The clarita were removed today and Steri-Strips were applied. A refill of [place] 7.5/325 mg, quantity #60 was given today. She is to continue physical therapy with home health and transition to outpatient physical therapy program. In addition, she is to continue aspirin twice daily for DVT prophylaxis. We will see her back in 4 weeks for repeat evaluation. In the meantime, the patient to call the office if she has any concerns. Dictated By: EZEKIEL HENRY/PABLO Conf#: [id number] DID#: [id number] FRANKIE
== END | disposition home or self-care (01) ==
LOC: HKI 09:59
PROVIDERS: ATTEND Orthopaedic Surgery
DX: Z47.1 Aftercare following joint replacement surgery (principal); Z96.651 Presence of right artificial knee joint

== ENCOUNTER → 2016-09-10 | Outpatient (CLI) | payer BC | END | disposition home or self-care (01) | LOC: HKI 10:00 | PROVIDERS: ATTEND Orthopaedic Surgery | DX: Z47.1 Aftercare following joint replacement surgery (principal); Z96.641 Presence of right artificial hip joint; M16.11 Unilateral primary osteoarthritis, right hip; I10 Essential (primary) hypertension; E78.00 Pure hypercholesterolemia, unspecified ==

== ENCOUNTER → 2016-10-22 | Outpatient (CLI) | payer BC ==
[~2016-10-22] MED LIST changes: +MELO-109 PO; +PANT20TA3 PO
--- NOTE | 2016-10-22 13:18 | RADRPT ---
PROCEDURE: CR Right Knee CLINICAL INDICATION: Pain TECHNIQUE: An AP, a lateral and a sunrise view were submitted. COMPARISON: 08/09/2016 FINDINGS: Osseous Structures: The total right knee replacement components again appear well seated without kenia dence of loosening. The osseous elements are otherwise intact. Join Spaces: The joint spaces are well maintained. A small joint effusion is again evident.. Soft Tissues: The soft tissues appear unremarkable. IMPRESSION: 1. Well seated total right knee replacement. The osseous elements are otherwise intact. 2. Small joint effusion, unchanged. 3. The superficial clarita have been removed. Physician Tawanna Date Time Electronically viewed and signed by Marissa Kitchen Physician on 10/22/2016 13:18 /
== END | disposition home or self-care (01) ==
LOC: HKI 10:16
PROVIDERS: ATTEND Orthopaedic Surgery
DX: M17.11 Unilateral primary osteoarthritis, right knee (principal); Z09 Encounter for follow-up examination after completed treatment for conditions other than malignant neoplasm; Z96.651 Presence of right artificial knee joint; I10 Essential (primary) hypertension; E78.5 Hyperlipidemia, unspecified; K21.9 Gastro-esophageal reflux disease without esophagitis